=== PATIENT | female | born 1960 | race Caucasian/White ===

== ENCOUNTER → 2017-01-31 | Outpatient (CLI) | payer OTHER ==
[2017-01-31 13:53] VITALS: BP 116/70; PULSE 79; RESP 16; TEMP 98
--- NOTE | 2017-01-31 14:31 | P.HPIM ---
History of Present Illness H&P Date: 01/31/17 Chief Complaint: low back pain and LLE pain/weakness This is a 57-year-old patient referred by Dr. Umana for chronic pain in low back and left lower extremity with radiation to left buttock and mostly ending above the left knee. Patient has been taking medications from Dr. Torres including Percocet medications with relief. Patient denies adverse drug effects from medications. Patient also denies new-onset weakness, bowel/ bladder incontinence, or any other signs or symptoms of cauda equina syndrome. There are no signs of acute intoxication, and no indications of medication diversion or overuse. Patient notes that pain worsens significantly with standing and walking, and improves with sitting, rest, ice and medication. Patient has used several types of medications for pain, including NSAIDS, OPIOIDS, BENZOS. Patient HAS NOT had surgery. Patient HAS had injections previously (epidural injections, which did not benefit her). Patient HAS NOT had physical therapy recently. In addition to above, 13-point review of systems is also negative for chest pain , shortness of breath, changes in vision, changes in hearing, new onset weakness , abdominal pain, diarrhea, extreme fatigue, malaise, fever, skin changes, homicidal or suicidal ideation, or bowel or bladder incontinence. Vital Signs: Reviewed in EMR Gen: WDWN, AAOx3, NAD HEENT: NCAT, EOMI, hearing grossly normal Pulm: resp unlabored Abd: soft, NT, ND Neck: supple, trachea midline ROM in flexion lumbar spine: reduced ROM in extension lumbar spine: reduced Lumbar paravertebral tenderness: + Facet loading: + bilateral, L > R SI joint tenderness: + L > R Don's test: + L > R Straight leg raise: + LLE at 5 degrees Lower extremity: decreased strength LLE due to pain Neuro: CN II-XII grossly intact Past Medical History Past Medical History: Hyperlipidemia, Hypertension Additional Past Medical History / Comment(s): back pain History of Any Multi-Drug Resistant Organisms: None Reported Past Surgical History: Section, Hysterectomy, Orthopedic Surgery, Tonsillectomy Additional Past Surgical History / Comment(s): vaginal and anal surgery Past Anesthesia/Blood Transfusion Reactions: No Reported Reaction Past Psychological History: Depression Smoking Status: Current every day smoker Past Alcohol Use History: Occasional Past Drug Use History: None Reported Medications and Allergies Home Medications Medication Instructions Recorded Confirmed Type Estradiol 0.5 mg PO BID 06/07/15 01/31/17 History Gabapentin [Neurontin] 800 mg PO QID 06/07/15 01/31/17 History Ibuprofen [Motrin] 800 mg PO Q8HR PRN 06/07/15 01/31/17 History Levothyroxine Sodium [Synthroid] 75 mcg PO DAILY 06/07/15 01/31/17 History Omeprazole [PriLOSEC] 20 mg PO AC-BID 06/07/15 01/31/17 History Triamterene-Hctz 37.5-25Mg 1 each PO DAILY 06/07/15 01/31/17 History [Dyazide] amLODIPine [Norvasc] 5 mg PO DAILY 06/07/15 01/31/17 History buPROPion SR [Wellbutrin Sr] 150 mg PO BID 06/07/15 01/31/17 History oxyCODONE HCL/ACETAMINOPHEN 1 each PO Q4H PRN 06/07/15 01/31/17 History [Percocet 10-325 mg] Citalopram Hydrobromide [CeleXA] 40 mg PO DAILY 01/31/17 01/31/17 History Allergies Allergy/AdvReac Type Severity Reaction Status Date / Time No Known Allergies Allergy Verified 01/31/17 13:34 Physical Exam Vitals: Vital Signs Temp Pulse Resp BP Pulse Ox 01/31/17 13:41 98 F 79 16 116/70 96 Intake and Output 01/30/17 01/31/17 01/31/17 22:59 06:59 14:59 Other: Weight 70.307 kg Patient Weight 02/01/17 06:59 Weight 70.307 kg Results Comments: MRI lumbar spine dated 01/11/2017 demonstrates a mild to moderate disc bulge at the L3-L4 level with posterior facet arthropathy resulting in mild/moderate bilateral foraminal stenosis. There is mild spinal canal stenosis and contacting the traversing L4 nerve roots. At the L4-L5 level there is mild to moderate disc bulge and mild facet arthropathy with ligamentous thickening. Spinal canal is well maintained there is superimposed dorsal epidural fat resulting in mild narrowing of the thecal sac. At the L5-S1 level there is disc degeneration with mild to moderate broad disc osteophyte complex and herniation into the neural foramen. There is superimposed moderate facet arthropathy is seen previously. There is moderate to severe bilateral foraminal stenosis. 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 Explanation: Opioid and psychological risk scores were reviewed. Diagnoses , prognoses, and multiple treatment options including but not limited to physical therapy, interventional therapies, adjuvant medical therapies, narcotic medication therapies, and surgery were discussed with the patient and all questions were answered to the patient's satisfaction. 2. Opioid agreement: no opioids prescribed today 3. Counseling: The patient was counseled extensively on SMOKING CESSATION, BODY MASS INDEX, EXERCISE. Specifically, the patient was instructed regarding the importance of smoking cessation, obesity, and exercise in the context of both chronic pain and overall health. 4. Procedures: bilateral lumbar MBB; if little relief, consider SIJ injections ; will avoid epidural injections due to epidural lipomatosis 5. Consultations: none 6. Investigations: none 7. Medications: none 8. Disposition: f/u for MBB as scheduled PQRS measures: 1-Patient's medications are documented in the chart. 2-Tobacco use is positive, counseling given 3-Patient has not had a pneumococcal vaccine. 4-Advanced care planning discussed, patient unable to give. 5-Opioid contract NOT signed with the patient. 6-Pain positive, follow-up visit or procedure scheduled 7-Patient's blood pressure measured and documented, and WNL. 8-Patient's weight was measured, and body mass index ABOVE the normal limits, and counseling was done. Patient instructed to follow up with PCP. 9-Patient WAS NOT identified as an unhealthy alcohol user. Time with Patient: Greater than 30
== END | disposition home or self-care (01) ==
LOC: PNWHC3 13:29
PROVIDERS: ATTEND Anesthesiology
DX: M48.06 Spinal stenosis, lumbar region (principal); M99.73 Connective tissue and disc stenosis of intervertebral foramina of lumbar region; M47.816 Spondylosis without myelopathy or radiculopathy, lumbar region; E88.2 Lipomatosis, not elsewhere classified; E78.5 Hyperlipidemia, unspecified; I10 Essential (primary) hypertension; F32.9 Major depressive disorder, single episode, unspecified; F17.200 Nicotine dependence, unspecified, uncomplicated; Z79.3 Long term (current) use of hormonal contraceptives; Z79.899 Other long term (current) drug therapy
CPT/HCPCS: 99201

== ENCOUNTER 2017-02-15 07:22 | Day surgery (SDC) | payer OTHER ==
[2017-02-11 09:25] VITALS: BMI 28.3
[~2017-02-15 07:22] MED LIST: LACTATED RINGERS 1,000 ML IV SCH
[2017-02-15 07:55] VITALS: RESP 16; TEMP 98.3
[2017-02-15] MEDS ORDERED: LIDOCAINE 1% 20 ML VIAL (10MG/ML) FOR IV START INTRADERMA ONE (07:55)
[2017-02-15] MEDS ORDERED: TRIAMCINOLONE ACETONIDE 40 MG/ML 1 ML VIAL ONE (08:23)
[2017-02-15] MEDS ORDERED: fentaNYL (PF) 50 MCG/ML 2 ML AMP ONE (08:23)
[2017-02-15] MEDS ORDERED: BUPIVACAINE (PF) 0.5% 30 ML VIAL ONE (08:23)
[2017-02-15] MEDS ORDERED: MIDAZOLAM 2 MG/2 ML VIAL ONE (08:23)
--- NOTE | 2017-02-15 08:49 | P.PCN ---
Date of Procedure: 02/15/17 Preoperative Diagnosis: Postoperative Diagnosis: Procedure(s) Performed: PREOPERATIVE DIAGNOSIS : 1-Lumbar spondylosis with Facet Arthropathy without myelopathy . 2- Lumber spinal stenosis POSTOPERATIVE DIAGNOSIS: 1- Lumbar spondylosis with Facet Arthropathy without myelopathy . 2- Lumber spinal stenosis PROCEDURE: Diagnostic bilateral L3 -4 , L4 -5 , and L5-S1 medial branch block under fluoroscopy ANESTHESIA: Local with 1% lidocaine 6 ml ; IV sedation with Versed 2 mg and Fentanyl 100 mcg. EBL: Minimal COMPLICATION: None. IV FLUIDS: 100 mL of normal saline. PROCEDURE INDICATION: Chronic low back pain secondary to Facet arthropathy unresponsive to conservative treatment. PROCEDURE DESCRIPTION: the patient was seen and identified in the preop holding area , risks and benefits and possible complications of the procedure and alternative were discussed with the patient, and the patient agreed to proceed with the procedure and signed the consent IV was started and vital signs monitored during the procedure and fluoroscopy was used to maximize the benefit and accuracy of the needle placement, and sedation was given to decrease patient anxiety, patient was taken to the procedure room and placed in prone position vital signs monitored in the back prepped with chlorhexidine X3 then under strict sterile technique using a right oblique fluoroscopy ,the junction of the transverse process and the superior articulating process of the right L3- 4 , L4- 5, and L5-S1 vertebra which corresponding to the fluoroscopy image of the eye of the Teodoro dog on the block side for the medial branches and subsequently , after local infiltration of skin and subcu tissuies with lidocaine 1% one mL at each level ,then 22- gauge Quincke-type needles , 3 needle was used , each one of them placed at the junction of the base of the transverse process and the superior articular process at the appropriate level, and the needle was advanced until the periosteum contacted, needle placement confirmed with AP oblique and lateral view and after appropriate needle placement confirmed, and after negative aspiration for heme and CSF and there was no paresthesia 1-1/2 mL of Marcaine 0.5% mixed with 40 mg Kenalog , then half mL injected at each level after negative aspiration the needle subsequently removed and the same procedure repeated for the left side at left side at L3-4, L4- 5 and L5-S1 levels. At the end of the procedure and the needles removed and a bandage applied after the skin was cleaned the cleaning solution patient taken to recovery room in stable condition and monitors in the recovery room for 20-30 minutes and discharged home in stable condition after discharge criteria met and patient will follow up with the pain clinic in 2-4 weeks Implants: Indications for Procedure: Operative Findings: Description of Procedure:
[2017-02-15] MEDS ORDERED: IV FLUID CONTINUATION 1,000 ML IV ONE (08:52)
[2017-02-15 09:10] VITALS: BP 138/70; PULSE 70
--- NOTE | 2017-02-16 11:09 | FL ---
Fluoroscopy HISTORY: Pain 7 seconds fluoroscopy time supplied to the referring clinician. 4 intraoperative C-arm images docume nt the procedure. See dictated report from anesthesia.
== END 2017-02-15 09:35 | disposition home or self-care (01) ==
LOC: ORPAIN 07:22
PROVIDERS: ATTEND Specialist
DX: G89.29 Other chronic pain (principal); M47.816 Spondylosis without myelopathy or radiculopathy, lumbar region; M46.86 Other specified inflammatory spondylopathies, lumbar region; M48.06 Spinal stenosis, lumbar region; I10 Essential (primary) hypertension
CPT/HCPCS: 64493; 64494; 64495; 99152; J2250; J3301; J3010

== ENCOUNTER → 2019-06-28 | Outpatient (CLI) | payer MEDICARE, OTHER ==
--- NOTE | 2019-06-29 01:21 | MR ---
EXAMINATION TYPE: MR hip LT wo con DATE OF EXAM: 06/28/2019 COMPARISON: None HISTORY: Left hip pain and swelling x 6 mths Standard multiplanar, multisequence MRI departmental protocol Multiplanar, multisequence images of the left were acquired. Diffusion weighted imaging was performed . FINDINGS: On the STIR images there is evidence of 5 mm degenerative cyst in the left acetabulum. Ther e is slight increased joint fluid on the left side compared to the right. There is no evidence of a p elvic mass. The proximal femurs are intact without evidence of avascular necrosis. There is no signif icant hip joint space narrowing. IMPRESSION: There is evidence for some early degenerative cyst formation in the left acetabulum anteriorly and sl ight increased joint fluid consistent with a nonspecific synovitis. No fracture seen. No evidence of avascular necrosis. No significant joint space narrowing. No pelvic mass.
== END | disposition home or self-care (01) ==
LOC: RADMRIMAIN 13:33
PROVIDERS: ATTEND Family Medicine
DX: M25.552 Pain in left hip (principal)

== ENCOUNTER → 2020-05-16 | Outpatient (CLI) | payer MEDICARE, OTHER ==
--- NOTE | 2020-05-16 12:17 | CT ---
EXAMINATION TYPE: CT chest w con DATE OF EXAM: 05/16/2020 COMPARISON: None HISTORY: Dysphagia, abnormal findings CT DLP: 214.10 mGycm Automated exposure control for dose reduction was used. CONTRAST: CT scan of the chest is performed with IV Contrast, patient injected with 100 ml mL of Isovue 300. FINDINGS: LUNGS: Scattered groundglass opacities of the bilateral lungs are seen, largest measuring up to 1.5 c m in the right lower lobe (4:33). No pleural effusion. No pneumothorax. The tracheobronchial tree is patent. MEDIASTINUM/SOFT TISSUES: There is a large hiatal hernia with entirely intrathoracic stomach. There i s tortuous winding course of the stomach, with narrowing and mass effect on the gastric fundus by the adjacent gastric body. No axillary, hilar, or mediastinal lymphadenopathy greater than 1 cm. Cardiac size is normal. No pericardial effusion. No thoracic aortic aneurysm. UPPER ABDOMEN: No adrenal nodule. OSSEOUS: No acute osseous abnormality. IMPRESSION: 1. Large hiatal hernia with entirely intrathoracic stomach. There is tortuous course of the stomach, with mass effect and narrowing on the gastric fundus. There is no perigastric inflammatory change to suggest acute process. 2. A few scattered groundglass opacities of the bilateral lungs are nonspecific and may represent in fectious or inflammatory pneumonitis. Largest measures 1.5 cm. Per Fleischner 2017 criteria, follow-u p CT is recommended in 6 months to confirm persistence.
--- NOTE | 2020-05-16 17:02 | FL ---
EXAMINATION TYPE: FL barium swallow DATE OF EXAM: 05/16/2020 CLINICAL HISTORY: Dysphasia. GERD. The sternal discomfort. TECHNIQUE: A single contrast esophagram is performed utilizing air and barium. A total of 1 minute 19 seconds of fluoroscopic time was utilized during procedure. COMPARISON: CT chest 05/16/2020 FINDINGS: There is entirely intrathoracic stomach, with tortuous course within the large hiatal herni a. There is narrowing of the gastric fundus due to mass effect by the adjacent gastric body. There is normal emptying into the proximal gastric body, however retention of contrast in the inferior portio n of the gastric body and delayed emptying through the tortuous more superior portion towards the gas tric antrum. Once contrast does reach the antrum there is normal emptying into the duodenum. There is some quicker emptying of the gastric body when patient is lying supine and can overcome gravity. The esophagus shows normal motility and emptying into the stomach. Moderate spontaneous gastroesophageal reflux was seen during real time performance of this study. IMPRESSION: 1. Entirely intrathoracic stomach as above. Significantly tortuous course of the stomach within the h ernia sac. Delayed emptying from the dependent gastric body portion. 2. Moderate continuous gastroesophageal reflux.
== END | disposition home or self-care (01) ==
LOC: RADCTMAIN 07:48
PROVIDERS: ATTEND Surgery Plastic and Reconstructive Surgery
DX: K44.9 Diaphragmatic hernia without obstruction or gangrene (principal); K21.9 Gastro-esophageal reflux disease without esophagitis; K31.89 Other diseases of stomach and duodenum; R91.8 Other nonspecific abnormal finding of lung field
CPT/HCPCS: 74220; 71260; Q9967

== ENCOUNTER → 2020-06-06 | Outpatient (CLI) | payer MEDICARE, OTHER ==
--- NOTE | 2020-06-07 04:19 | MR ---
EXAMINATION TYPE: MR hips BILAT wo con DATE OF EXAM: 06/06/2020 COMPARISON: MR scan of the left hip 06/28/2019 HISTORY: Bilateral hip pain, low back pain Multiplanar multiecho imaging of the pelvis and both hips was performed without contrast. The proximal femurs are intact. There is no evidence of hip dysplasia. There is no evidence of avascu lar necrosis. There is normal signal pattern in the femoral heads on the STIR images. There is slight increased joint fluid on the left hip compared to the right. There is no evidence of a pelvic mass. There is no sign of free fluid in the pelvis. Bladder distends smoothly. IMPRESSION: Hip joint spaces are fairly normal. No evidence of avascular necrosis. Slight increased left side pina nt fluid suggestive of nonspecific mild synovitis. This appears similar to old exam. No fracture.
== END | disposition home or self-care (01) ==
LOC: RADMRIMAIN 15:26
PROVIDERS: ATTEND Family Medicine
DX: M25.452 Effusion, left hip (principal)